=== PATIENT | male | born 1960 | race Caucasian/White ===

== ENCOUNTER 2020-03-13 15:20 | Emergency (ER) | payer BC, OTHER ==
[2020-03-13 15:51] VITALS: BP 136/87; PULSE 66; TEMP 97.9; BMI 21.7
== END 2020-03-13 16:34 | disposition home or self-care (01) ==
LOC: FER 15:20
DX: S61.012A Laceration without foreign body of left thumb without damage to nail, initial encounter (principal)
CPT/HCPCS: 99282-25

== ENCOUNTER 2024-01-17 09:49 | Emergency (ER) | payer BC, OTHER ==
[2024-01-17 10:37] VITALS: BP 130/74; PULSE 97; RESP 20; TEMP 98.2; BMI 21.7
== END 2024-01-17 10:40 | disposition home or self-care (01) ==
LOC: FER 09:49
PROC: 0HQ1XZZ Repair Face Skin, External Approach (ICD-10-PCS; principal; 2024-01-17)
DX: S01.81XA Laceration without foreign body of other part of head, initial encounter (principal); W22.8XXA Striking against or struck by other objects, initial encounter
CPT/HCPCS: 99282-25

== ENCOUNTER 2024-01-22 10:38 | Emergency (ER) | payer BC, OTHER ==
[2024-01-22 10:53] VITALS: BP 123/79; PULSE 76; RESP 18; TEMP 97.3; BMI 21.7
== END 2024-01-22 11:05 | disposition home or self-care (01) ==
LOC: FER 10:38
DX: Z48.02 Encounter for removal of sutures (principal)
CPT/HCPCS: 99281-25